=== PATIENT | male | born 2000 | race African-American/Black ===

== ENCOUNTER 2024-11-24 20:07 | Emergency (ER) | payer SELFPAY ==
[2024-11-24 20:28] VITALS: RESP 16; TEMP 98.8; BMI 28.5
[2024-11-24] MEDS: LACTATED RINGERS SOLUTION 1000 ML INFUS.BAG IV ONE ×2 (21:21→23:28)
[2024-11-24 21:23] LABS: VENOUS O2 SATURATION 84.4 % (70-80); VENOUS PCO2 26.3 mmHg (38-52); VENOUS PH 7.54 (7.310-7.410)
[2024-11-24 21:24] LABS: ABSOLUTE IMMATURE GRANULOCYTES 0.03 x10^3/uL (0.0-0.031); BASOPHILS # 0.09 x10^3/uL (0.01-0.08); EOSINOPHIL % 0.7 % (0.8-7.0); EOSINOPHILS # 0.08 x10^3/uL (0.04-0.54); HEMATOCRIT 41.5 % (40.1-51.0); HEMOGLOBIN 13.8 g/dL (13.7-17.5); MCHC 33.3 g/dl (32.3-36.5); MEAN PLT VOLUME 10.5 fl (9.4-12.4); MONOCYTE # 0.97 x10^3/uL (0.30-0.82); MONOCYTE % 8.7 % (5.3-12.2); PLATELET COUNT 286 x10^3/uL (163-337); RDW 13.1 % (11.9-15.3)
[2024-11-24 21:49] LABS: POTASSIUM 3.3 mmol/L (3.5-5.1)
[2024-11-24 21:52] LABS: ALBUMIN 3.9 g/dl (3.4-5.0); BLOOD UREA NITROGEN 11.2 mg/dL (7-18); CALCIUM 9.8 mg/dL (8.5-10.1)
[2024-11-24 21:56] LABS: CREATININE 0.9 mg/dL (0.55-1.3)
[2024-11-24 21:57] LABS: BILIRUBIN,TOTAL 0.4 mg/dL (0.2-1); TOT PROT 7.3 g/dl (6.4-8.2)
[2024-11-24 22:17] LABS: LACTIC ACID 2.2 mmol/L (0.4-2.0)
[2024-11-24] MEDS ORDERED: POTASSIUM CHLORIDE ORAL LIQUID 20 MEQ/15 ML ONE (23:05)
[2024-11-24] MEDS: POTASSIUM CHLORIDE ORAL LIQUID 20 MEQ/15 ML PO ONE (23:28)
[2024-11-25 01:28] LABS: VENOUS O2 SATURATION 68.9 % (70-80); VENOUS PCO2 43.9 mmHg (38-52); VENOUS PH 7.335 (7.310-7.410)
[2024-11-25 01:30] LABS: EPI CELLS 20 /uL (0-25.1); HYALINE CASTS 0 /uL (0-3.1); PH,URINE 7.5 (5.0-8.0); URINE APPEARANCE CLEAR; URINE BACTERIA 201 /uL (0-1359); URINE BILIRUBIN NEGATIVE (NEGATIVE); URINE COLOR YELLOW; URINE GLUCOSE (UA) 3+ (NEGATIVE); URINE KETONE 3+ (NEGATIVE); URINE LEUK ESTERASE TRACE (NEGATIVE); URINE NITRITE NEGATIVE (NEGATIVE); URINE PROTEIN NEGATIVE (NEGATIVE); URINE RBC 23 /uL (0-23.9); URINE WBC 9 /uL (0-25.8)
[2024-11-25] MEDS ORDERED: CEFTRIAXONE 1 G/50 ML PREMIX 50 ML IVPB ONE (02:14)
[2024-11-25 02:45] VITALS: BP 127/65; PULSE 62
== END 2024-11-25 03:24 | disposition home or self-care (01) ==
LOC: JER 20:07
DX: N39.0 Urinary tract infection, site not specified (principal); E11.9 Type 2 diabetes mellitus without complications; R00.2 Palpitations; R53.1 Weakness; R42 Dizziness and giddiness
CPT/HCPCS: 36415; 71045-TC-FY; 80053; 81003; 82010; 82803; 83605; 84484; 85025; 87077; 87086; 93005; 93010; 99284-25

== ENCOUNTER 2024-11-25 08:47 | Emergency (ER) | payer SELFPAY ==
[2024-11-25] MEDS ORDERED: diphenhydrAMINE HCL 25 MG CAPSULE (FP) PO ONE (09:25)
[2024-11-25] MEDS ORDERED: DEXAMETHASONE SOD PHOSPHATE 10 MG/1 ML VIAL ONE (09:25)
[2024-11-25] MEDS: diphenhydrAMINE HCL 50 MG CAPSULE PO ONE (09:33)
[2024-11-25] MEDS: DEXAMETHASONE SOD PHOSPHATE 10 MG/1 ML VIAL PO ONE (09:33)
[2024-11-25 09:43] VITALS: BP 132/84; PULSE 63; RESP 16; TEMP 98.7; BMI 28.5
== END 2024-11-25 11:08 | disposition home or self-care (01) ==
LOC: JERFT 08:47 → JER 08:47 → JERFT 11:08
DX: R22.0 Localized swelling, mass and lump, head (principal); T50.905A Adverse effect of unspecified drugs, medicaments and biological substances, initial encounter
CPT/HCPCS: 99283-25; J1100